=== PATIENT | female | born 1965 | race Caucasian/White ===

== ENCOUNTER 2021-01-30 09:26 | Emergency (ER) | payer OTHER ==
[~2021-01-30] VITALS: Ht 154.9 cm; Wt 56.7 kg
[2021-01-30] MEDS ORDERED: KETO10TA2 PO (14:01)
== END 2021-01-30 14:06 | disposition home or self-care (01) ==
LOC: ER 09:26
DX: M25.531 Pain in right wrist (principal)

== ENCOUNTER 2021-02-20 08:20 | Outpatient (CLI) | payer OTHER ==
[~2021-02-20 08:20] MED LIST: KETO10TA2 PO
== END 2021-02-20 08:25 | disposition home or self-care (01) ==
LOC: PPH VACUNA 08:20
DX: Z23 Encounter for immunization (principal)

== ENCOUNTER 2021-09-24 05:49 | Day surgery (SDC) | payer OTHER | END 2021-09-24 13:00 | disposition home or self-care (01) | LOC: CIR.AMB 05:49 → ADM 11-08 09:45 | PROVIDERS: ATTEND Orthopaedic Surgery Hand Surgery | DX: M67.431 Ganglion, right wrist (principal); Z20.822 Contact with and (suspected) exposure to COVID-19 ==

== ENCOUNTER 2021-10-14 14:40 | Outpatient (CLI) | payer OTHER | END 2021-10-14 14:50 | disposition home or self-care (01) | LOC: PPH VACUNA 14:40 | PROVIDERS: ATTEND Emergency Medicine Pediatric Emergency Medicine | DX: Z23 Encounter for immunization (principal) ==

== ENCOUNTER 2021-12-13 15:57 | Emergency (ER) | payer OTHER ==
[~2021-12-13] VITALS: Ht 152.4 cm; Wt 56.7 kg
== END 2021-12-13 19:09 | disposition home or self-care (01) ==
LOC: ER 15:57
DX: S61.210A Laceration without foreign body of right index finger without damage to nail, initial encounter (principal); X58.XXXA Exposure to other specified factors, initial encounter; Y92.89 Other specified places as the place of occurrence of the external cause; Z88.8 Allergy status to other drugs, medicaments and biological substances; Z88.0 Allergy status to penicillin; Z91.013 Allergy to seafood